=== PATIENT | female | born 1990 | race Two or more races ===

== ENCOUNTER 2018-05-14 21:51 | Emergency (ER) | payer SELFPAY ==
[~2018-05-14] VITALS: Ht 160 cm; Wt 89.8 kg
[2018-05-14 21:55] VITALS: BP 130/82
[2018-05-14] MEDS ORDERED: NKM (22:00)
[2018-05-14] MEDS ORDERED: Bacitracin Oint UD TOPIC ONE ×2 (22:52→23:00)
[2018-05-14] MEDS ORDERED: IBUPROFEN600 MG ORAL (22:56)
--- NOTE | 2018-05-14 22:57 | Emergency Room Report ---
History of Present Illness General Chief Complaint: Animal Bite Source: Patient Present Illness HPI Is a 27-year-old female was brought in with chief complaint of a dog bite to the right leg. This occurred just prior to arrival. 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 No other injury. Burning sensation and pain to that area. Shots shots up-to-date. Patient recently immigrated the [place] and had immunization given. Pain is 7 out of 10. No other complaint. Allergies: Coded Allergies: No Known Allergies (Unverified , 05/14/18) Patient History Past Medical History: see triage record, old chart reviewed Past Surgical History: none Pertinent Family History: none Social History: Denies: smoking Last Menstrual Period: Apr Now: No Immunizations: UTD Reviewed Nursing Documentation: PMH: Agreed; PSxH: Agreed Nursing Documentation-PMH Past Medical History: No Stated History Review of Systems Eye: Denies: eye pain, blurred vision ENT: Denies: ear pain, nose congestion, throat swelling Respiratory: Denies: cough, shortness of breath Cardiovascular: Denies: chest pain, palpitations Gastrointestinal: Denies: abdominal pain, diarrhea, nausea, vomiting Musculoskeletal: Denies: back pain, joint pain Skin: Denies: rash Neurological: Denies: headache, numbness Endocrine: Denies: increased thirst, increased urine Hematologic/Lymphatic: Denies: easy bruising All Other Systems: negative except mentioned in HPI Physical Exam Vital Signs Date Time Temp Pulse Resp B/P (MAP) Pulse Ox O2 Delivery O2 Flow Rate FiO2 05/14/18 21:54 98.1 96 18 130/82 96 Room Air 98.1 vitals normal Sp02 EP Interpretation: reviewed, normal General Appearance: well appearing, no apparent distress, alert Head: normocephalic, atraumatic Eyes: bilateral eye PERRL, bilateral eye EOMI ENT: hearing grossly normal, normal pharynx Neck: full range of motion, supple, no meningismus Respiratory: chest non-tender, lungs clear, normal breath sounds Cardiovascular #1: regular rate, rhythm, no murmur Gastrointestinal: normal bowel sounds, non tender, no mass, no organomegaly, no bruit, non-distended Musculoskeletal: back normal, gait/station normal, normal range of motion, other - Right calf Eder laterally, there is some mild bruising. Minimal break in the skin. No active bleeding. No laceration. Neurologic: alert, oriented x3 Psychiatric: mood/affect normal Skin: warm/dry Medical Decision Making Diagnostic Impression: Primary Impression: Dog bite of extremity ER Course Patient with a dog bite to the leg. Is more of a contusion rather than any break in the skin. Low risk for infection. Low risk for tetanus. We'll discharge home with local care. Last Vital Signs Date Time Temp Pulse Resp B/P (MAP) Pulse Ox O2 Delivery O2 Flow Rate FiO2 05/14/18 21:55 98.1 96 18 130/82 96 Room Air 98.1 Status: improved Disposition: HOME, SELF-CARE Condition: Stable Scripts Ibuprofen* (MOTRIN*) 600 Mg Tablet 600 MG ORAL THREE TIMES A DAY, #30 TAB 0 Refills Prov: NIKKI TOWNSEND M.D. 05/14/18 Patient Instructions: Animal Bite Additional Instructions: Keep wound clean. Apply antibiotic ointment to area. Return if worse. Follow- up with your doctor in 7 days as needed. NIKKI TOWNSEND M.D. May 14, 2018 22:57
== END 2018-05-14 23:00 | disposition home or self-care (01) ==
LOC: EMR 22:59
DX: S80.11XA Contusion of right lower leg, initial encounter (principal); W54.0XXA Bitten by dog, initial encounter; Y92.89 Other specified places as the place of occurrence of the external cause
CPT/HCPCS: 99283